=== PATIENT | female | born 1955 | race Caucasian/White ===

== ENCOUNTER 2024-01-09 14:27 | Emergency (ER) | payer BC, OTHER ==
[~2024-01-09] VITALS: Ht 165.1 cm; Wt 80.2 kg
[2024-01-09 14:34] VITALS: BP 114/58; PULSE 75; O2SAT 97
[2024-01-09] MEDS ORDERED: CEPH-585 PO (15:45)
[2024-01-09] MEDS ORDERED: HYDR28GE5 TOP (15:50)
[2024-01-09 16:06] VITALS: RESP 18; TEMP 98.2
== END 2024-01-09 15:55 | disposition home or self-care (01) ==
LOC: ER 14:29
DX: S80.861A Insect bite (nonvenomous), right lower leg, initial encounter (principal); L03.115 Cellulitis of right lower limb; Z88.2 Allergy status to sulfonamides; Z79.2 Long term (current) use of antibiotics; Z79.899 Other long term (current) drug therapy; W57.XXXA Bitten or stung by nonvenomous insect and other nonvenomous arthropods, initial encounter; Y93.89 Activity, other specified; Y92.89 Other specified places as the place of occurrence of the external cause; Y99.8 Other external cause status
CPT/HCPCS: 99283

== ENCOUNTER 2025-02-08 07:26 | Emergency (ER) | payer BC, MEDICARE ==
[~2025-02-08] VITALS: Ht 165.1 cm; Wt 81.0 kg
[~2025-02-08 07:26] MED LIST: HYDR28GE5 TOP
[2025-02-08 07:29] VITALS: BP 104/66; PULSE 99; RESP 16; O2SAT 100
--- NOTE | 2025-02-08 10:18 | Physician Documentation ---
History of Present Illness ~ Chief Complaint: Back Pain Stated Complaint: KIDNEY PAIN Time Seen by MD: 09:59 HPI Patient is a 69-year-old female that presents to the emergency department for lethargy bilateral posterior back pain difficulty urinating and fevers x1 week. Patient reports that she has had fevers and nausea over the last 24 hours. Patient also reports that she has had chronic fatigue over the last year without source or relief. Reports she took an [id number] supplement that her daughter suggested she take with some relief earlier in the week his symptoms have now returned and worsened. Medication Reconciliation Allergies: Coded Allergies: Sulfa (Sulfonamide Antibiotics) (Unverified Allergy, Unknown, "Body goes o n fire", 02/08/25) Scheduled Ciprofloxacin/Ciprofloxa Hcl (Ciprofloxacin Er 500 Mg Tablet), 1 TAB PO DAILY Scheduled PRN Hydrocortisone (Cortizone 10), 1 GM TOP BID PRN for pain Review of Systems ROS As stated above in the HPI, otherwise all systems are reviewed and negative. Physical Exam Physical Exam Vital Signs: Temperature: 98.2, Source: Oral, Heart Rate: 99, Respiratory Rate: 16, BP: 104/66, Pulse Oximetry: 100, Weight: 81.000 Oxygen Flow Rate: 0 Physical Exam VITALS: Reviewed and as above. GENERAL: Alert, no apparent distress. HEENT: Normocephalic, atraumatic, PERRL, EOMI, dry mucosa, no erythema RESPIRATORY: Lungs clear, normal breath sounds, no respiratory distress. CHEST: No accessory muscle use, no retractions CV: Regular rate, rhythm, no edema, no murmur, No: JVD GI: Soft, non-tender, bowels sounds present, no rebound, guarding, or rigidity BACK: Positive CVA tenderness MUSCULOSKELETAL No deformities, no edema SKIN: Warm and dry, no rash NEURO: Oriented x4, No motor or sensory deficit PSYCH: Normal mood and affect, no agitation Progress Results/Orders Results/Orders Completed Orders - ROXY ROBBINS Cbc/Diff (02/08/25 10:13) CMP (02/08/25 10:13) LA (02/08/25 10:13) Lipase (02/08/25 10:13) Ondansetron Disint. Tablet (Zofran Odt T (02/08/25 10:20) Ceftriaxone Im Kit W/Lidocaine (Rocephin (02/08/25 11:35) Normal Saline 1000ml (0.9% Sodium Chlori (02/08/25 11:35) Vital Signs 02/08/25 02/08/25 07:29 12:58 Temp 98.2 98.2 Pulse 99 Resp 16 B/P (MAP) 104/66 Pulse Ox 100 O2 Flow Rate 0 Laboratory Tests Test 02/08/25 10:28 02/08/25 11:03 White Blood Count 8.9 Red Blood Count 4.27 Hemoglobin 13.0 Hematocrit 38.2 Mean Corpuscular Volume 89.5 Mean Corpuscular Hemoglobin 30.3 Mean Corpuscular Hemoglobin Concent 33.9 Red Cell Distribution Width 12.9 Platelet Count 287 Mean Platelet Volume 8.2 Neutrophils (%) (Auto) 88.0 H Lymphocytes (%) (Auto) 4.8 L Monocytes (%) (Auto) 6.5 Eosinophils (%) (Auto) 0 Basophils (%) (Auto) 0.7 Neutrophils # (Auto) 7.8 H Lymphocytes # (Auto) 0.4 L Monocytes # (Auto) 0.6 Eosinophils # (Auto) 0.0 Basophils # (Auto) 0.1 CBC Comment Sodium Level 132 L Potassium Level 3.9 Chloride Level 98 L Carbon Dioxide Level 23.6 L Anion Gap 10 Blood Urea Nitrogen 12 Creatinine 1.13 H Estimated GFR/1.73 m2 48 BUN/Creatinine Ratio 10.6 Glucose Level 115 H Lactic Acid Level 0.9 Calcium Level 8.8 Total Bilirubin 0.6 Aspartate Amino Transf (AST/SGOT) 10 Alanine Aminotransferase (ALT/SGPT) 15 Alkaline Phosphatase 71 Total Protein 8.6 H Albumin 3.6 Globulin 5.0 H Albumin/Globulin Ratio 0.7 L Lipase 29 Chemistry Comments Urine Specimen Description Cln catch midstream Urine Color Yellow Urine Clarity Turbid Urine pH 6.0 Urine Specific [place] 1.015 Urine Protein 100 H Urine Glucose (UA) Negative Urine Ketones Negative Urine Occult Blood Small Urine Nitrite Negative Urine Bilirubin Negative Urine Urobilinogen 1.0 Urine Leukocyte Esterase Large H Urine RBC 3-10 Urine WBC Tntc H Urine Squamous Epithelial Cells Moderate Urine Transitional Epithelial Cells Moderate Urine Bacteria 2+ Urine Culture Indicated Indicated Volume Urine Centrifuged 10 ml Urine Comment Microbiology Date/Time Source Procedure Growth Status 02/08/25 11:21 Urine Clean Catch Midstream Urine Culture - Final Escherichia Coli Strep Agalactiae (Grp B) Complete Medical Decision Making Findings This patient presents with symptoms consistent with acute uncomplicated cystitis. No systemic symptoms. Not septic. Well appearing. Moderate suspicion for pyelonephritis.Will treat accordingly. Low suspicion for kidney stone or infected stone. Upreg negative so doubt ectopic pregnancy_. Low suspicion for ovarian torsion, PID, or appendicitis. Differential Dx:Considerations: Include: AAA, Aortic dissection, , Appendicitis, Bowel obstruction, Cholelithiasis, Cholangitis, DJD, Ectopic , Fracture, Hepatitis, HNP, Musculoskeletal pain, Pancreatitis, Pyelonephritis, Strain, Urinary obstruction, Urolithiasis, Ovarian torsion, Other Departure Disposition: HOME / SELF CARE / HOMELESS Impression: Primary Impression: UTI (urinary tract infection) Additional Impression: Dysuria Condition: Stable Discharge Instructions: Urinary Tract Infection, Adult, [id number] Additional Instructions: You were evaluated for symptoms of urinary tract infection concern for pyelonephritis. We have administered an IM injection of antibiotics here in the emergency department and given a bolus of fluid prior to discharge. Prescribing antibiotics please take the antibiotics until they are completed. Please follow up with your primary care provider. Return to the emergency department if you have any worsening or recurrent symptoms or any additional concerning symptoms present that we discussed here today. Referrals: NO PRIMARY CARE PROVIDER (PCP) Prescriptions Ciprofloxacin/Ciprofloxa Hcl (Ciprofloxacin Er 500 Mg Tablet) 500 Mg Tbmp.24hr 1 TAB PO DAILY for 5 Days, #5 TAB Prov: ROXY ROBBINS 02/08/25 Education Educated: Patient Educated regarding: treatment, need for follow up Signature Scribe Signature: . Attestation: Scribed for Roxy Robbins by MARGIE Garcia . 02/08/25 12:12 ROXY ROBBINS Feb 08, 2025 10:18
[2025-02-08] MEDS: ondansetron 4mg rapidly disintigrating tab PO ONE (10:29)
[2025-02-08 10:41] LABS: MEAN PLATELET VOLUME 8.2 FL (7.4-10.4); RED CELL DISTRIBUTION WIDTH 12.9 % (11.5-14.5)
[2025-02-08 11:02] LABS: CREATININE 1.13 MG/DL (0.40-0.90); TOTAL CARBON DIOXIDE 23.6 MMOL/L (24-32); eCRCL 42 ML/MIN; eGFR 48 ML/MIN
[2025-02-08 11:10] LABS: LEUKOCYTE ESTERASE ,URINE LARGE (Neg); NITRITES, URINE NEGATIVE (Neg); OCCULT BLOOD,URINE SMALL (Neg)
[2025-02-08 11:11] LABS: UA COLLECTION TYPE CLN CATCH MIDSTREAM
[2025-02-08 11:17] LABS: SQUAMOUS EPITHELIAL CELL,UR MODERATE /LPF (FEW)
[2025-02-08] MEDS: normal saline 1000ml 1,000 ML IV ONE (11:35)
[2025-02-08] MEDS ORDERED: CIPR-20 PO (12:12)
[2025-02-08] MEDS: CefTRIAXone 1000mg IM Kit (w/lidocaine diluent) IM ONE (12:33)
[2025-02-08 12:58] VITALS: TEMP 98.2
== END 2025-02-08 13:00 | disposition home or self-care (01) ==
LOC: ER 07:27
DX: N39.0 Urinary tract infection, site not specified (principal); R30.0 Dysuria; M54.9 Dorsalgia, unspecified; Z88.2 Allergy status to sulfonamides
CPT/HCPCS: 36415; 80053; 81001; 83605; 83690; 85025; 87077; 87088; 87186; 96360; 96372; 99283; J0696; J7030